=== PATIENT | female | born 1955 | race Two or more races ===

== ENCOUNTER → 2018-01-06 | Outpatient (CLI) | payer OTHER ==
--- NOTE | 2018-01-06 10:11 | RADIOLOGY REPORT (SQ) ---
EXAM DESCRIPTION: CT SINUSES FOR ENT COMPLETED DATE/TIME: 01/06/2018 9:39 am REASON FOR STUDY: J32.9 CHRONIC SINUSITIS, UNSPECIFIED ( SINUS FUSION PROTOCOL) J32.9 CHRONIC SINUS ITIS, UNSPECIFIED COMPARISON: None. TECHNIQUE: Noncontrast scanning through the paranasal sinuses using bone algorithm. Reconstructed MPR images reviewed. All images stored on PACS. Images acquired for image guided surgery. All CT scanners at this facility use dose modulation, iterative reconstruction, and/or weight based d osing when appropriate to reduce radiation dose to as low as reasonably achievable (ALARA). [facility]: Dose Right [facility]: CareDose [facility]: Dose Right [facility]: Teradose 4D [facility]: plista RADIATION DOSE: 45.9 mGy. FINDINGS: NASAL PASSAGES: Clear. No polyps or masses. OSTEOMEATAL UNITS AND NASOFRONTAL DUCTS: Patent. No agger Nasi cells. Bilateral Martine cells are pre sent. MAXILLARY SINUSES: Well-pneumatized and clear. Maxillary sinus outlets are patent. ETHMOID SINUSES: Well-pneumatized and clear. SPHENOID SINUSES: Well-pneumatized and clear. No sphenoethmoid air cells or pneumatized pterygoid rec ess. No pneumatized dorsal sella. FRONTAL SINUSES: Well-pneumatized and clear. MASTOID AIR CELLS: Clear. ORBITS: Normal and symmetrical. NASAL SEPTUM: Very mild leftward nasal septal deviation. No nasal septal spurs. TEMPOROMANDIBULAR JOINTS: Normal. TURBINATES: No pneumatized turbinates. MUCOPERIOSTEAL THICKENING: No. MUCOCELE: No. OTHER: Inferior brain parenchyma unremarkable. IMPRESSION: NO EVIDENCE OF ACUTE SINUSITIS. TECHNICAL DOCUMENTATION: JOB ID: [id number] Quality ID # [id number]: Final reports with documentation of one or more dose reduction techniques (e.g., Au tomated exposure control, adjustment of the mA and/or kV according to patient size, use of iterative reconstruction technique) 2010 [employer]- All Rights Reserved Reading location - IP/workstation name: [email or web address]
== END ==
LOC: RAD 09:22
PROVIDERS: ATTEND Otolaryngology
DX: J32.9 Chronic sinusitis, unspecified (principal)
CPT/HCPCS: 70486

== ENCOUNTER → 2018-01-08 | Outpatient (CLI) | payer OTHER | LOC: OD 09:02 | PROVIDERS: ATTEND Internal Medicine | DX: E03.9 Hypothyroidism, unspecified (principal); J30.9 Allergic rhinitis, unspecified | CPT/HCPCS: 36415; 82785; 84443; 86003 ==

== ENCOUNTER 2018-01-11 09:44 | Emergency (ER) | payer OTHER ==
[2018-01-11] MEDS ORDERED: KETOROLAC TROMETHAMINE INJ/PF 30 MG/1 ML SDV IM ONE (11:07)
--- NOTE | 2018-01-11 11:47 | RADIOLOGY REPORT (SQ) ---
EXAM DESCRIPTION: KNEE RIGHT 4 VIEWS COMPLETED DATE/TIME: 01/11/2018 11:27 am REASON FOR STUDY: fall, knee pain COMPARISON: None. NUMBER OF VIEWS: Four views. TECHNIQUE: AP, lateral, and both oblique radiographic images acquired of the right knee. LIMITATIONS: None. FINDINGS: MINERALIZATION: Normal. BONES: There are obliquely oriented lucencies extending through the patella. No other acute bony abn ormalities are appreciated. JOINT: There is a moderate-sized joint effusion present. SOFT TISSUES: No soft tissue swelling. No radio-opaque foreign body. OTHER: No other significant finding. IMPRESSION: Suggestion of possible nondisplaced fracture of the patella with moderate-sized joint ef fusion. Consider CT for further evaluation. TECHNICAL DOCUMENTATION: JOB ID: [id number] [facility]- All Rights Reserved Reading location - IP/workstation name: [email or web address]
[2018-01-11] MEDS ORDERED: OXYCODONE-ACETAMINOPHEN 5-325 MG TABLET PO ONE (12:09)
--- NOTE | 2018-01-11 12:13 | ER Document Report ---
ED Extremity Problem, Lower - General Chief Complaint: Leg Injury Stated Complaint: LEG PAIN Time Seen by Provider: 01/11/18 10:54 Mode of Arrival: Ambulatory Information source: Patient Notes: 62-year-old female who presents with chief complaint of right knee pain after she fell yesterday in her garage striking her knee onto concrete floor. Patient reports no difficulty bearing weight and limited range of motion. TRAVEL OUTSIDE OF THE [place] IN LAST 30 DAYS: No - Related Data Allergies/Adverse Reactions: aspirin [Aspirin] Allergy (Verified 10/09/15 08:49) codeine Allergy (Verified 01/11/18 09:46) Iodinated Contrast- Oral and IV Dye [IV Dye, Iodine Containing] Allergy ( Verified 10/09/15 08:54) Penicillins Allergy (Verified 01/11/18 09:46) Sulfa (Sulfonamide Antibiotics) Allergy (Verified 10/09/15 08:54) Past Medical History - General Information source: Patient - Social History Smoking Status: Never Smoker Chew tobacco use (# tins/day): No Frequency of alcohol use: None Drug Abuse: None Family History: Arthritis, CAD, DM, Hyperlipidemia, Hypertension, Malignancy Patient has suicidal ideation: No Patient has homicidal ideation: No Pulmonary Medical History: Reports: Hx Asthma Renal/ Medical History: Denies: Hx Peritoneal Dialysis GI Medical History: Reports: Hx Gastroesophageal Reflux Disease, Hx Hiatal Hernia, Hx Colonoscopy, Hx Endoscopy Musculoskeletal Medical History: Reports Hx Musculoskeletal Deformity Psychiatric Medical History: Reports: Hx Anxiety, Hx Depression Past Surgical History: Reports: Hx Section, Hx Gastric Bypass Surgery, Hx Hysterectomy - Immunizations Hx Pneumococcal Vaccination: 03/23/15 Review of Systems - Review of Systems Constitutional: No symptoms reported EENT: No symptoms reported Cardiovascular: No symptoms reported Respiratory: No symptoms reported Gastrointestinal: No symptoms reported Genitourinary: No symptoms reported Female Genitourinary: No symptoms reported Musculoskeletal: No symptoms reported Skin: No symptoms reported Hematologic/Lymphatic: No symptoms reported Neurological/Psychological: No symptoms reported Physical Exam - Vital signs Vitals: Temp Pulse Resp BP Pulse Ox 99.2 F 75 18 123/68 99 01/11/18 09:54 01/11/18 09:54 01/11/18 09:54 01/11/18 09:54 01/11/18 09:54 - Notes Notes: PHYSICAL EXAMINATION: GENERAL: Well-appearing, well-nourished and in no acute distress. HEAD: Atraumatic, normocephalic. EYES: Pupils equal round and reactive to light, extraocular movements intact, conjunctiva are normal. ENT: Nares patent, oropharynx clear without exudates. Moist mucous membranes. NECK: Normal range of motion, supple without lymphadenopathy LUNGS: Breath sounds clear to auscultation bilaterally and equal. No wheezes rales or rhonchi. HEART: Regular rate and rhythm without murmurs ABDOMEN: Soft, nontender, nondistended abdomen. No guarding, no rebound. No masses appreciated. Female : deferred Musculoskeletal: Limited range of motion to right knee, normal range of motion otherwise, no pitting or edema. No cyanosis. NEUROLOGICAL: Cranial nerves grossly intact. Normal speech. Normal sensory, motor exams PSYCH: Normal mood, normal affect. SKIN: Warm, Dry, normal turgor, no rashes or lesions noted. Course - Re-evaluation Re-evalutation: Patient with a nondisplaced fracture of the patella with moderate size joint effusion on x-ray. Consult to Dr. Neely who recommends to place patient in a knee immobilizer and have her follow-up tomorrow morning in his office. - Vital Signs Vital signs: Temp Pulse Resp BP Pulse Ox 98 F 72 16 118/62 99 01/11/18 12:25 01/11/18 12:25 01/11/18 12:25 01/11/18 12:25 01/11/18 12:25 Discharge - Discharge Clinical Impression: Patella fracture Qualifiers: Encounter type: initial encounter Fracture type: closed Fracture morphology: other fracture Laterality: right Qualified Code(s): S82.091A - Other fracture of right patella, initial encounter for closed fracture Condition: Stable Disposition: HOME, SELF-CARE Additional Instructions: Fractured Patella You have broken the kneecap (patella). Mild fractures can be treated with splinting. Serious fractures (those that split the kneecap so the thigh muscle and kneecap tendon aren't connected) usually need surgery. The entire knee will swell and bulge with fluid. There may be a lot of bruising. The knee will be splinted. Apply ice packs, and elevate the leg. You shouldn't walk on the leg at first. After a couple of days, you can walk in the splint if it doesn't hurt. Call the doctor at once if there is severe swelling, increasing pain, numbness, or other alarming symptoms. Please keep the knee immobilizer in place until you see the orthopedic doctor tomorrow Use the crutches as provided Ice and elevate the extremity Take Motrin 600 mg every 6 hours Use the prescription pain medication as needed for breakthrough pain Prescriptions: Hydrocodone/Acetaminophen [Hydrocodon-Acetaminophen 5-325] 1 each PO Q4H PRN # 12 tablet PRN Reason: For Pain Referrals: OWEN AMADO MD [ACTIVE STAFF] - Follow up as needed
[2018-01-11 12:32] VITALS: BP 118/62
== END 2018-01-11 12:25 | disposition home or self-care (01) ==
LOC: ER 09:44
DX: S82.001A Unspecified fracture of right patella, initial encounter for closed fracture (principal); W01.0XXA Fall on same level from slipping, tripping and stumbling without subsequent striking against object, initial encounter; J45.909 Unspecified asthma, uncomplicated; Z88.6 Allergy status to analgesic agent; Z88.5 Allergy status to narcotic agent; Z91.040 Latex allergy status; Z88.0 Allergy status to penicillin; Z88.2 Allergy status to sulfonamides
CPT/HCPCS: 99283; 96372; 73564; L1830; J1885

== ENCOUNTER → 2019-04-08 | Outpatient (CLI) | payer BC | LOC: LAB 18:33 | PROVIDERS: ATTEND Nurse Practitioner Acute Care | DX: R30.0 Dysuria (principal) | CPT/HCPCS: 87086 ==

== ENCOUNTER 2020-01-13 09:09 | Inpatient (IN) | payer MEDICARE, OTHER ==
--- NOTE | 2020-01-13 10:17 | ER Document Report ---
ED Medical Screen (RME) - General Chief Complaint: S/S of Possible Stroke Stated Complaint: POSSIBLE STROKE Time Seen by Provider: 01/13/20 10:14 Primary Care Provider: JACKLYN GEORGES NP [Primary Care Provider] - Follow up as needed Mode of Arrival: Wheelchair Information source: Patient, Relative Notes: 64-year-old female presents to ED for a stroke on Friday. She does have right- sided weakness. She is not able to talk. He is able to make some things now even though she is not able to talk very well. She is able to understand what we are saying. She is here with her son and she has a friend who knows more about what is going on she does have the name and number of to the friend. Patient is alert she does know who she is and where she is she does know who her son is. I have greeted and performed a rapid initial assessment of this patient. A comprehensive ED assessment and evaluation of the patient, analysis of test results and completion of medical decision making process will be conducted by an additional ED providers. TRAVEL OUTSIDE OF THE [place].S. IN LAST 30 DAYS: No - Related Data Allergies/Adverse Reactions: aspirin [Aspirin] Allergy (Verified 10/09/15 08:49) codeine Allergy (Verified 01/11/18 09:46) Iodinated Contrast Media [IV Dye, Iodine Containing] Allergy (Verified 10/09/15 08:54) Penicillins Allergy (Verified 01/11/18 09:46) Sulfa (Sulfonamide Antibiotics) Allergy (Verified 10/09/15 08:54) Past Medical History Pulmonary Medical History: Reports: Hx Asthma Renal/ Medical History: Denies: Hx Peritoneal Dialysis GI Medical History: Reports: Hx Gastroesophageal Reflux Disease, Hx Hiatal Hernia, Hx Colonoscopy, Hx Endoscopy Musculoskeltal Medical History: Reports Hx Musculoskeletal Deformity Psychiatric Medical History: Reports: Hx Anxiety, Hx Depression Past Surgical History: Reports: Hx Section, Hx Gastric Bypass Surgery, Hx Hysterectomy Physical Exam - Vital signs Vitals: Temp Pulse Resp BP Pulse Ox 99.3 F 96 18 142/71 H 100 01/13/20 09:14 01/13/20 09:14 01/13/20 09:14 01/13/20 09:14 01/13/20 09:14 Course - Vital Signs Vital signs: Temp Pulse Resp BP Pulse Ox 99.3 F 96 18 142/71 H 100 01/13/20 09:14 01/13/20 09:14 01/13/20 09:14 01/13/20 09:14 01/13/20 09:14 Doctor's Discharge - Discharge Referrals: JACKLYN GEORGES, KNITTER HAND [Primary Care Provider] - Follow up as needed
--- NOTE | 2020-01-13 10:37 | RADIOLOGY REPORT (SQ) ---
EXAM DESCRIPTION: CHEST SINGLE VIEW IMAGES COMPLETED DATE/TIME: 01/13/2020 10:29 am REASON FOR STUDY: Stroke Friday COMPARISON: None. NUMBER OF VIEWS: One view. TECHNIQUE: Single frontal radiographic view of the chest acquired. LIMITATIONS: None. FINDINGS: LUNGS AND PLEURA: No opacities, masses or pneumothorax. No pleural effusion. MEDIASTINUM AND HILAR STRUCTURES: No masses. Contour normal. HEART AND VASCULAR STRUCTURES: Heart normal in size. Normal vasculature. BONES: No acute findings. HARDWARE: None in the chest. OTHER: No other significant finding. IMPRESSION: NO SIGNIFICANT RADIOGRAPHIC FINDING IN THE CHEST. TECHNICAL DOCUMENTATION: JOB ID: [id number] 2010 [employer]- All Rights Reserved Reading location - IP/workstation name: [email or web address]
--- NOTE | 2020-01-13 10:40 | RADIOLOGY REPORT (SQ) ---
EXAM DESCRIPTION: CT HEAD WITHOUT IMAGES COMPLETED DATE/TIME: 01/13/2020 10:31 am REASON FOR STUDY: Stroke Friday COMPARISON: None. TECHNIQUE: Axial images acquired through the brain without intravenous contrast. Images reviewed wi th bone, brain and subdural windows. Additional sagittal and coronal reconstructions were generated. Images stored on PACS. All CT scanners at this facility use dose modulation, iterative reconstruction, and/or weight based d osing when appropriate to reduce radiation dose to as low as reasonably achievable (ALARA). [facility]: Dose Right [facility]: CareDose [facility]: Dose Right [facility]: Teradose 4D [facility]: [employer] RADIATION DOSE: CT Rad equipment meets quality standard of care and radiation dose reduction techniq ues were employed. CTDIvol: 53.2 mGy. DLP: 1070 mGy-cm. mGy. LIMITATIONS: None. FINDINGS: VENTRICLES: Normal size and contour. CEREBRUM: Watershed small areas of low attenuation left frontal lobe and left insula. No evidence of acute infarct, mass, hemorrhage or extra-axial fluid collection. CEREBELLUM: No masses. No hemorrhage. No alteration of density. No evidence for acute infarction. EXTRAAXIAL SPACES: No fluid collections. No masses. ORBITS AND GLOBE: No intra- or extraconal masses. Normal contour of globe without masses. CALVARIUM: No fracture. PARANASAL SINUSES: No fluid or mucosal thickening. SOFT TISSUES: No mass or hematoma. OTHER: No other significant finding. IMPRESSION: Subacute/chronic nonhemorrhagic watershed infarcts. EVIDENCE OF ACUTE STROKE: YES. LEFT MCA. COMMENT: Quality ID # [id number]: Final reports with documentation of one or more dose reduction techniques (e.g., Automated exposure control, adjustment of the mA and/or kV according to patient size, use of iterative reconstruction technique) TECHNICAL DOCUMENTATION: JOB ID: [id number] 2010 [employer]- All Rights Reserved Reading location - IP/workstation name: [email or web address]
--- NOTE | 2020-01-13 10:47 | ER Document Report ---
ED General - General Chief Complaint: S/S of Possible Stroke Stated Complaint: POSSIBLE STROKE Time Seen by Provider: 01/13/20 10:14 Mode of Arrival: Wheelchair Notes: Patient presents with right-sided facial asymmetry right-sided weakness and speech difficulty beginning on Friday afternoon. Is been constant since then. Her son is not aware of any of the details but she can tell me when it started. She was brought in by a friend who noticed that weakness today. She has no prior stroke history and we do not think she is on anticoagulation but she is not sure at her history is limited by aphasia. TRAVEL OUTSIDE OF THE [place] IN LAST 30 DAYS: No - Related Data Allergies/Adverse Reactions: aspirin [Aspirin] Allergy (Verified 10/09/15 08:49) codeine Allergy (Verified 01/11/18 09:46) Iodinated Contrast Media [IV Dye, Iodine Containing] Allergy (Verified 10/09/15 08:54) Penicillins Allergy (Verified 01/11/18 09:46) Sulfa (Sulfonamide Antibiotics) Allergy (Verified 10/09/15 08:54) Past Medical History - General Information source: Patient, Relative - Social History Smoking Status: Never Smoker Chew tobacco use (# tins/day): No Frequency of alcohol use: Heavy Drug Abuse: None Family History: Arthritis, CAD, DM, Hyperlipidemia, Hypertension, Malignancy Patient has homicidal ideation: No Pulmonary Medical History: Reports: Hx Asthma Renal/ Medical History: Denies: Hx Peritoneal Dialysis GI Medical History: Reports: Hx Gastroesophageal Reflux Disease, Hx Hiatal Hernia, Hx Colonoscopy, Hx Endoscopy Musculoskeletal Medical History: Reports Hx Musculoskeletal Deformity Psychiatric Medical History: Reports: Hx Anxiety, Hx Depression Past Surgical History: Reports: Hx Section, Hx Gastric Bypass Surgery, Hx Hysterectomy - Immunizations Hx Pneumococcal Vaccination: 03/23/15 Review of Systems - Review of Systems Notes: I REVIEW OF SYSTEMS Did: Aphasia PHYSICAL EXAMINATION General: No acute distress, well-nourished Head: Atraumatic, normocephalic ENT: Mouth normal, oropharynx moist, no exudates or tonsillar enlargement Eyes: Conjunctiva normal, pupils equal, lids normal Neck: No JVD, supple, no guarding CVS: Normal rate, regular rhythm, no murmurs Resp: No resp distress, equal and normal breath sounds bilaterally GI: Nondistended, soft, no tenderness to palpation, no rebound or guarding Ext: No deformities, no edema, normal range of motion in upper and lower ext Back: No CVA or midline TTP Skin: No rash, warm Lymphatic: No lymphadeopathy noted Neuro: Awake, alert. Face is asymmetric mild right droop with preserved eyebrow movement. 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 GCS 15. Very mild right leg weakness greater than right arm drift. Expressive aphasia, mild -: Yes ROS unobtainable due to patient's medical condition Physical Exam - Vital signs Vitals: Temp Pulse Resp BP Pulse Ox 99.3 F 96 18 142/71 H 100 01/13/20 09:14 01/13/20 09:14 01/13/20 09:14 01/13/20 09:14 01/13/20 09:14 Course - Re-evaluation Re-evalutation: 01/13/20 10:46 Subacute stroke appears to be completed out of the window for both IV TPA and intervention of any kind CT shows left MCA infarct which matches her symptoms We will attempt to admit to [place], aspirin atorvastatin will be given and will discuss with hospitalist. 01/13/20 14:58 Discussed with hospitalist. Appropriate for admission here, discussed with Adams. Labs and urine are negative We will admit upstairs here at [place] for further work-up and treatment - Vital Signs Vital signs: Temp Pulse Resp BP Pulse Ox 99.3 F 96 18 117/50 L 100 01/13/20 09:14 01/13/20 09:14 01/13/20 13:30 01/13/20 13:01 01/13/20 13:30 - Laboratory Result Diagrams: 01/13/20 10:33 01/13/20 10:33 Laboratory results interpreted by me: 01/13/20 01/13/20 01/13/20 10:33 10:33 11:25 RDW 16.3 H Chloride 112 H Carbon Dioxide 21 L Creatine Kinase 182 H Urine Ketones TRACE H - Diagnostic Test Radiology reviewed: Image reviewed, Reports reviewed Discharge - Discharge Clinical Impression: Acute ischemic left MCA stroke Condition: Fair Disposition: ADMITTED INPATIENT Admitting Provider: Adams (Hospitalist)
[2020-01-13 10:49] LABS: INTERNATIONAL RATION (INR) 1.01
[2020-01-13 10:51] LABS: ABSOLUTE LYMPHOCYTES (AUTO) 1.8 10^3/uL (0.5-4.7); ABSOLUTE MONOCYTES (AUTO) 0.4 10^3/uL (0.1-1.4); ABSOLUTE NEUT (AUTO) 5.8 10^3/uL (1.7-8.2); BASOPHILS % (AUTO) 0.2 % (0-2); EOSINOPHILS % (AUTO) 0.4 % (0-6); HEMATOCRIT 37.2 % (36.0-47.0); HEMOGLOBIN 12.2 g/dL (12.0-15.5); LYMPHOCYTES % (AUTO) 21.9 % (13-45); MEAN CORPUSCULAR HEMOGLOBIN 29.5 pg (27.0-33.4); MEAN CORPUSCULAR HGB CONC 32.9 g/dL (32.0-36.0); MEAN CORPUSCULAR VOLUME 90 fl (80-97); MONOCYTES % (AUTO) 5.1 % (3-13); PLATELET COUNT 305 10^3/uL (150-450); RED BLOOD COUNT 4.14 10^6/uL (3.72-5.28); RED CELL DISTRIBUTION WIDTH 16.3 % (11.5-14.0); SEGMENTED NEUTROPHILS % (AUTO) 72.4 % (42-78); TOTAL CELLS COUNTED % (AUTO) 100 %
[2020-01-13 10:52] LABS: PROTHROMBIN TIME 13.3 SEC (11.4-15.4)
[2020-01-13 11:02] LABS: ALBUMIN 4.5 g/dL (3.5-5.0); ALKALINE PHOSPHATASE 65 U/L (38-126); ANION GAP 7 (5-19); ASPARTATE AMINO TRANSFERASE 29 U/L (14-36); BILIRUBIN,TOTAL 0.4 mg/dL (0.2-1.3); BLOOD UREA NITROGEN 15 mg/dL (7-20); CALCIUM 9.5 mg/dL (8.4-10.2); CARBON DIOXIDE 21 mmol/L (22-30); CHLORIDE 112 mmol/L (98-107); CREATINE KINASE 182 U/L (30-135); GLUCOSE 103 mg/dL (75-110); POTASSIUM 3.8 mmol/L (3.6-5.0); TOTAL PROTEIN 7.6 g/dL (6.3-8.2)
[2020-01-13 11:14] LABS: CREATINE KINASE MB 1.27 ng/mL (<4.55)
[2020-01-13 11:18] LABS: TROPONIN I < 0.012 ng/mL
[2020-01-13 11:52] LABS: AMORPHOUS SEDIMENT,URINE TRACE /HPF; APPEARANCE,URINE SLIGHTLY-CLOUDY; BILIRUBIN,URINE NEGATIVE (NEGATIVE); COLOR,URINE YELLOW; GLUCOSE, URINE NEGATIVE (NEGATIVE); KETONES,URINE TRACE mg/dL (NEGATIVE); LEUKOCYTE ESTERASE,URINE NEGATIVE (NEGATIVE); NITRITE,URINE NEGATIVE (NEGATIVE); PROTEIN,URINE NEGATIVE (NEGATIVE); URINE SPECIFIC GRAVITY 1.016; UROBILINOGEN,URINE NEGATIVE mg/dL (<2.0)
[2020-01-13] MEDS ORDERED: ACETAMINOPHEN 325 MG TABLET PO PRN (12:40)
--- NOTE | 2020-01-13 12:56 | PDOC H&P ---
History of Present Illness Admission Date/PCP: VICTORIANO MCKEON DO History of Present Illness: MARYBETH MCGUIRE is a 64 year old female with no significant past medical history who presents 2 days after the onset of dysarthria and right-sided weakness. She said the right-sided weakness has improved substantially but she still has trouble with her speech. She has not noticed whether or not she has had any trouble swallowing. The main issue she seems to have now is trouble getting her words out. She is frustrated by the fact that she knows what she wants to say but she has trouble verbalizing it. She was noted to have some subtle left facial droop. She said when it first happened, she was having to drag her right foot but now she is able to walk with a smoother gait. She is never had anything like this happen her before. She has no family history of stroke. She is not diabetic. She has no history of hypertension. No history of chronic kidney disease. No history of hyperlipidemia. She does not smoke. No history of any cardiac disease or peripheral vascular disease. No history of an abnormal heart rhythm. She was found to have evidence of a stroke of what looks to be the left MCA territory on head CT that appeared subacute. Past Medical History Pulmonary Medical History: Reports: Asthma GI Medical History: Reports: Gastroesophageal Reflux Disease, Hiatal Hernia Psychiatric Medical History: Reports: Depression Past Surgical History Past Surgical History: Reports: Section, Gastric Bypass Surgery, Hysterectomy Social History Smoking Status: Never Smoker Electronic Cigarette use?: No Frequency of Alcohol Use: None Hx Recreational Drug Use: No Drugs: None Hx Prescription Drug Abuse: No Family History Family History: Arthritis, CAD, DM, Hyperlipidemia, Hypertension, Malignancy Parental Family History Reviewed: Yes Children Family History Reviewed: Yes Sibling(s) Family History Reviewed.: Yes Medication/Allergy Home Medications: Cetirizine HCl [Zyrtec] 10 mg PO DAILY 10/09/15 Venlafaxine HCl ER [Effexor Xr 75 mg Cap.sr] 75 mg PO DAILY 10/09/15 Hydrocodone/Acetaminophen [Hydrocodon-Acetaminophen 5-325] 1 each PO Q4H PRN #12 tablet 01/11/18 Allergies/Adverse Reactions: aspirin [Aspirin] Allergy (Verified 10/09/15 08:49) codeine Allergy (Verified 01/11/18 09:46) Iodinated Contrast Media [IV Dye, Iodine Containing] Allergy (Verified 10/09/15 08:54) Penicillins Allergy (Verified 01/11/18 09:46) Sulfa (Sulfonamide Antibiotics) Allergy (Verified 10/09/15 08:54) Review of Systems All systems: reviewed and no additional remarkable complaints except as stated - All systems were reviewed and were negative except as noted in the HPI Physical Exam Vital Signs: Temp Pulse Resp BP Pulse Ox 99.3 F 96 12 134/61 H 100 01/13/20 09:14 01/13/20 09:14 01/13/20 11:15 01/13/20 11:01 01/13/20 11:15 Intake & Output 01/12/20 01/13/20 01/14/20 06:59 06:59 06:59 Weight 77.2 kg General appearance: PRESENT: no acute distress, cooperative, disheveled, obese Head exam: PRESENT: atraumatic, normocephalic Eye exam: PRESENT: EOMI, PERRLA. ABSENT: conjunctival injection, nystagmus, scleral icterus Ear exam: PRESENT: normal external ear exam Mouth exam: PRESENT: moist, neck supple Throat exam: ABSENT: post pharyngeal erythema Neck exam: PRESENT: full ROM. ABSENT: carotid bruit, JVD, lymphadenopathy, meningismus, tenderness, thyromegaly Respiratory exam: PRESENT: clear to auscultation chase, symmetrical, unlabored. ABSENT: accessory muscle use, chest wall tenderness, crackles, prolonged expiratory phas, rhonchi, tachypnea, wheezes Cardiovascular exam: PRESENT: RRR, +S1, +S2 Pulses: PRESENT: normal carotid pulses Vascular exam: PRESENT: normal capillary refill GI/Abdominal exam: PRESENT: normal bowel sounds, soft. ABSENT: distended, guarding, rebound, tenderness Extremities exam: ABSENT: clubbing, pedal edema Musculoskeletal exam: PRESENT: normal inspection. ABSENT: deformity Neurological exam: PRESENT: alert, awake, oriented to person, oriented to place, oriented to situation, CN II-XII grossly intact - With the exception of some subtle left-sided facial droop, aphasic - She seems to have an expressive a aphasia, cannot always get the words out that she wants and gets visibly frustrated. ABSENT: motor sensory deficit - She was not able to hold her right leg off the bed as long as she did the left Psychiatric exam: PRESENT: appropriate affect, normal mood Skin exam: PRESENT: dry, warm Results Laboratory Results: 01/13/20 10:33 01/13/20 10:33 01/13/20 01/13/20 01/13/20 10:33 10:33 11:25 WBC 8.0 RBC 4.14 Hgb 12.2 Hct 37.2 MCV 90 MCH 29.5 MCHC 32.9 RDW 16.3 H Plt Count 305 Seg Neutrophils % 72.4 Sodium 140.1 Potassium 3.8 Chloride 112 H Carbon Dioxide 21 L Anion Gap 7 BUN 15 Creatinine 0.87 Est GFR ( Amer) > 60 Glucose 103 Calcium 9.5 Total Bilirubin 0.4 AST 29 Alkaline Phosphatase 65 Total Protein 7.6 Albumin 4.5 Urine Color YELLOW Urine Appearance SLIGHTLY-CLOUDY Urine pH 7.0 Ur Specific [employer] 1.016 Urine Protein NEGATIVE Urine Glucose (UA) NEGATIVE Urine Ketones TRACE H Urine Blood NEGATIVE Urine Nitrite NEGATIVE Ur Leukocyte Esterase NEGATIVE Urine WBC (Auto) 1 Urine RBC (Auto) 2 01/13/20 01/13/20 10:33 10:33 Creatine Kinase 182 H CK-MB (CK-2) 1.27 Troponin I < 0.012 Impressions: Chest X-Ray 01/13/20 10:17 IMPRESSION: NO SIGNIFICANT RADIOGRAPHIC FINDING IN THE CHEST. Head CT 01/13/20 10:17 IMPRESSION: Subacute/chronic nonhemorrhagic watershed infarcts. EVIDENCE OF ACUTE STROKE: YES. LEFT MCA. Assessment and Plan - Diagnosis (1) Acute ischemic left MCA stroke Is this a current diagnosis for this admission?: Yes Plan: MRI of the head and carotid Doppler. She has an aspirin allergy so we will put her on Plavix. Check a lipid panel and start atorvastatin. Permissive hyperte nsion, but her blood pressures have been pretty good. We will have her evaluated by PT, OT, and speech therapy. - Time Time Spent with patient: 35 or more minutes Anticipated discharge: Home with Homehealth Within: within 72 hours - Inpatient Certification Based on my medical assessment, after consideration of the patient's comorbidities, presenting symptoms, or acuity I expect that the services needed warrant INPATIENT care.: Yes I certify that my determination is in accordance with my understanding of Medicare's requirements for reasonable and necessary INPATIENT services [42 CFR 412.3e].: Yes Medical Necessity: Need Close Monitoring Due to Risk of Patient Decompensation, Need For Continuous Telemetry Monitoring, Need for Neurological Checks, Risk of Complication if Not Cared For in Hospital
--- NOTE | 2020-01-13 14:47 | RADIOLOGY REPORT (SQ) ---
EXAM DESCRIPTION: MRI HEAD WITHOUT IMAGES COMPLETED DATE/TIME: 01/13/2020 2:27 pm REASON FOR STUDY: acute cva COMPARISON: Head CT of the same date. TECHNIQUE: Multiplanar imaging includes non-contrasted T1, T2, FLAIR, and diffusion with ADC map seq uences. Images stored on PACS. LIMITATIONS: None. FINDINGS: ANATOMY: No anomalies. Normal vascular flow voids. Pituitary fossa normal. CSF SPACES: Normal in size and contour. No hemorrhage. CEREBRUM: There are 4 areas of abnormal signal in the left MCA distribution, the largest in the left frontal cortex measuring about 3 cm. Bright on diffusion and dark on ADC map. No hemorrhage or mass effect. POSTERIOR FOSSA: No signal alteration. No hemorrhage. No edema, masses or mass effect. Internal ml tory canals, cerebello-pontine angles, mastoids normal. DIFFUSION IMAGING: See above. ORBITS: No masses. Globes normal. PARANASAL SINUSES: No fluid levels. Mucosa normal. OTHER: No other significant finding. IMPRESSION: Acute, nonhemorrhagic watershed infarcts left frontal and temporal lobes. EVIDENCE OF ACUTE STROKE: YES. LEFT MCA TECHNICAL DOCUMENTATION: JOB ID: [id number] [employer]- All Rights Reserved Reading location - IP/workstation name: [email or web address]
[2020-01-13] MEDS: HEPARIN SOD (PORCINE) 5,000 UNIT/ML 1 ML VIAL SUBCUT SCH ×2 (18:23→21:47)
--- NOTE | 2020-01-13 19:23 | RADIOLOGY REPORT (SQ) ---
EXAM DESCRIPTION: CAROTID DOPPLER IMAGES COMPLETED DATE/TIME: 01/13/2020 6:58 pm REASON FOR STUDY: acute cva COMPARISON: None. TECHNIQUE: Grayscale ultrasound, Doppler velocity and spectra, and color Doppler images acquired of the extra-cranial carotid and vertebral arteries. Images stored on PACS. LIMITATIONS: None. FINDINGS: RIGHT CAROTID CCA Velocities: Within normal limits. ICA Velocities Peak systolic 100 cm/s. End diastolic 43 cm/s. Proximal ICA/CCA peak systolic ratio 1.3. Spectra normal. No significant plaque. LEFT CAROTID CCA Velocities: Within normal limits. ICA Velocities Peak systolic 114 cm/s. End diastolic 42 cm/s. Proximal ICA/CCA peak systolic ratio 1.3. Spectra normal. No significant plaque. VERTEBRAL ARTERIES: Antegrade flow. Normal waveforms. SUBCLAVIAN ARTERIES: No finding. OTHER: No other significant finding. IMPRESSION: NO HEMODYNAMICALLY SIGNIFICANT STENOSIS. COMMENT: Quality ID #[id number]: Velocity criteria are extrapolated from the diameter data as defined by t he Society of Radiologists in Ultrasound Consensus Conference. Radiology 2003: 229; 340-346. TECHNICAL DOCUMENTATION: JOB ID: [id number] 2010 [employer]- All Rights Reserved Reading location - IP/workstation name: [email or web address]
[2020-01-13] MEDS ORDERED: ATORVASTATIN CALCIUM 80 MG TABLET PO SCH (22:00)
[2020-01-13] MEDS ORDERED: FAMOTIDINE 20 MG TABLET PO ONE (23:45)
[2020-01-13] MEDS ORDERED: FAMOTIDINE 20 MG TABLET PO SCH (23:45)
[2020-01-13] MEDS ORDERED: BUSPIRONE HCL 10 MG TABLET PO ONE (23:45)
[2020-01-13] MEDS ORDERED: HYDROXYZINE PAMOATE 25 MG CAPSULE PO SCH (23:45)
[2020-01-13] MEDS ORDERED: TOPIRAMATE 100 MG TABLET PO ONE (23:45)
[2020-01-13] MEDS ORDERED: HYDROXYZINE PAMOATE 25 MG CAPSULE PO ONE (23:45)
[2020-01-14] MEDS ORDERED: HYDROXYZINE PAMOATE 25 MG CAPSULE PO ONE (00:15)
[2020-01-14] MEDS ORDERED: TOPIRAMATE 100 MG TABLET ONE (00:39)
[2020-01-14] MEDS: TOPIRAMATE 100 MG TABLET PO SCH ×2 (00:44→10:22)
--- NOTE | 2020-01-14 01:08 | EKG REPORT ---
SEVERITY:- ABNORMAL ECG - SINUS RHYTHM PROBABLE LVH WITH SECONDARY REPOL ABNRM : Confirmed by: Adrián Rahman 14-Jan-2020 01:07:29
[2020-01-14] MEDS: HEPARIN SOD (PORCINE) 5,000 UNIT/ML 1 ML VIAL SUBCUT SCH ×2 (06:20→14:18)
[2020-01-14 08:15] LABS: MEAN CORPUSCULAR HEMOGLOBIN 29.4 pg (27.0-33.4); MEAN CORPUSCULAR HGB CONC 33.3 g/dL (32.0-36.0); MEAN CORPUSCULAR VOLUME 88 fl (80-97); PLATELET COUNT 263 10^3/uL (150-450); RED BLOOD COUNT 4.08 10^6/uL (3.72-5.28); WHITE BLOOD COUNT 4.3 10^3/uL (4.0-10.5)
[2020-01-14 08:36] LABS: BLOOD UREA NITROGEN 12 mg/dL (7-20); CALCIUM 9.2 mg/dL (8.4-10.2); CHOLESTEROL 210.92 mg/dL (0-200); GLUCOSE 97 mg/dL (75-110); POTASSIUM 3.7 mmol/L (3.6-5.0); TRIGLYCERIDES 128 mg/dL (<150)
[2020-01-14 08:41] LABS: ANION GAP 7 (5-19); CARBON DIOXIDE 22 mmol/L (22-30); CHLORIDE 112 mmol/L (98-107)
[2020-01-14 08:51] LABS: DIRECT LDL 104 mg/dL (<100)
[2020-01-14] MEDS ORDERED: VENLAFAXINE HCL 75 MG CAP.SR.24H PO SCH (10:00)
[2020-01-14] MEDS ORDERED: CLOPIDOGREL BISULFATE 75 MG TABLET PO SCH (10:00)
[2020-01-14] MEDS: BUSPIRONE HCL 10 MG TABLET PO SCH ×2 (10:22)
[2020-01-14 12:29] VITALS: BP 109/56
--- NOTE | 2020-01-14 17:54 | PDOC DISCHARGE SUMMARY ---
Impression - Admit/DC Date/PCP Admission Date/Primary Care Provider: 01/13/20 13:23 VICTORIANO MIKE, DO Discharge Date: 01/14/20 - Discharge Diagnosis (1) Acute ischemic left MCA stroke Is this a current diagnosis for this admission?: Yes - Additional Information Resuscitation Status: Full Code Discharge Diet: Cardiac Discharge Activity: Slowly Increase Activity Referrals: JACKLYN GEORGES, INSO[facility] L[facility] TURNER [NURSE PRACTITIONER] - 01/21/20 10:00 am Prescriptions: Aspirin [[facility] [facility] Aspirin EC] 81 mg PO DAILY #30 tablet. Home Medications: Venlafaxine HCl ER [Effexor Xr 75 mg Cap.sr] 225 mg PO DAILY 10/09/15 Buspirone HCl [Buspar 10 mg Tablet] 30 mg PO BID 01/13/20 Famotidine [Pepcid] 20 mg PO QHS 01/13/20 Hydroxyzine Pamoate [Vistaril 25 mg Capsule] 25 mg PO QHS 01/13/20 Topiramate [Topamax] 100 mg PO BID 01/13/20 Aspirin [[facility] Aspirin EC] 81 mg PO DAILY #30 tablet. 01/14/20 History of Present Illiness History of Present Illness: MARYBETH MCGUIRE is a 64 year old female with no significant past medical history who presents 2 days after the onset of dysarthria and right-sided weakness. She said the right-sided weakness has improved substantially but she still has trouble with her speech. She has not noticed whether or not she has had any trouble swallowing. The main issue she seems to have now is trouble getting her words out. She is frustrated by the fact that she knows what she wants to say but she has trouble verbalizing it. She was noted to have some subtle left facial droop. She said when it first happened, she was having to drag her right foot but now she is able to walk with a smoother gait. She is never had anything like this happen her before. She has no family history of stroke. She is not diabetic. She has no history of hypertension. No history of chronic kidney disease. No history of hyperlipidemia. She does not smoke. No history of any cardiac disease or peripheral vascular disease. No history of an abnormal heart rhythm. She was found to have evidence of a stroke of what looks to be the left MCA territory on head CT that appeared subacute. Hospital Course Hospital Course: She did have an MRI that confirmed left MCA stroke. Fortunately, she has had an improvement in her expressive aphasia, but still has a little bit of residual deficit. She has not had any trouble chewing or swallowing. She was visibly frustrated when she was having trouble trying to get out what she wanted to say. She was able to ambulate independently and perform all of her ADLs. She was encouraged to take a daily aspirin. Her LDL was barely elevated above her goal, so she was encouraged to cut saturated fat out of her diet just a little bit more. Her blood pressure was good. She is not diabetic and does not smoke. She has follow-up arranged with her primary care provider in 1 to 2 weeks. We have set up home health speech therapy, and we also set her up with some physical therapy because even though she was able to ambulate independently in the room, when she walked longer distances she used a single-point cane. Her labs and examination were reassuring and she was discharged in stable condition. Physical Exam Vital Signs: Temp Pulse Resp BP Pulse Ox 97.7 F 79 16 109/56 L 100 01/14/20 13:18 01/14/20 14:00 01/14/20 13:18 01/14/20 12:00 01/14/20 13:18 Intake & Output 01/13/20 01/14/20 01/15/20 06:59 06:59 06:59 Intake Total 0 Output Total 1405 Balance 0 -1405 Weight 77.6 kg General appearance: PRESENT: no acute distress, cooperative, disheveled, obese Respiratory exam: PRESENT: clear to auscultation chase, symmetrical, unlabored. ABSENT: accessory muscle use, chest wall tenderness, crackles, prolonged expiratory phas, rhonchi, tachypnea, wheezes Cardiovascular exam: PRESENT: RRR, +S1, +S2 Pulses: PRESENT: normal carotid pulses Vascular exam: PRESENT: normal capillary refill GI/Abdominal exam: PRESENT: normal bowel sounds, soft. ABSENT: distended, guarding, rebound, tenderness Extremities exam: ABSENT: clubbing, pedal edema Musculoskeletal exam: PRESENT: normal inspection. ABSENT: deformity Neurological exam: PRESENT: alert, awake, oriented to person, oriented to place, oriented to situation, CN II-XII grossly intact - With the exception of some subtle left-sided facial droop, aphasic - She seems to have an expressive aphasia, cannot always get the words out that she wants and gets visibly frustrated. Very subtle decreased strength in the right lower extremity compared to the left but has improved since the initial exam Psychiatric exam: PRESENT: appropriate affect, normal mood Skin exam: PRESENT: dry, warm Results Laboratory Results: WBC 4.3 10^3/uL (4.0-10.5) 01/14/20 07:50 RBC 4.08 10^6/uL (3.72-5.28) 01/14/20 07:50 Hgb 12.0 g/dL (12.0-15.5) 01/14/20 07:50 Hct 36.0 % (36.0-47.0) 01/14/20 07:50 MCV 88 fl (80-97) 01/14/20 07:50 MCH 29.4 pg (27.0-33.4) 01/14/20 07:50 MCHC 33.3 g/dL (32.0-36.0) 01/14/20 07:50 RDW 16.0 % (11.5-14.0) H 01/14/20 07:50 Plt Count 263 10^3/uL (150-450) 01/14/20 07:50 Lymph % (Auto) 21.9 % (13-45) 01/13/20 10:33 [place] % (Auto) 5.1 % (3-13) 01/13/20 10:33 Eos % (Auto) 0.4 % (0-6) 01/13/20 10:33 Baso % (Auto) 0.2 % (0-2) 01/13/20 10:33 Absolute Neuts (auto) 5.8 10^3/uL (1.7-8.2) 01/13/20 10:33 Absolute Lymphs (auto) 1.8 10^3/uL (0.5-4.7) 01/13/20 10:33 Absolute Monos (auto) 0.4 10^3/uL (0.1-1.4) 01/13/20 10:33 Absolute Eos (auto) 0.0 10^3/uL (0.0-0.6) 01/13/20 10:33 Absolute Basos (auto) 0.0 10^3/uL (0.0-0.2) 01/13/20 10:33 Seg Neutrophils % 72.4 % (42-78) 01/13/20 10:33 PT 13.3 SEC (11.4-15.4) 01/13/20 10:33 INR 1.01 01/13/20 10:33 APTT 26.0 SEC (23.5-35.8) 01/13/20 10:33 Sodium 140.5 mmol/L (137-145) 01/14/20 07:50 Potassium 3.7 mmol/L (3.6-5.0) 01/14/20 07:50 Chloride 112 mmol/L (98-107) H 01/14/20 07:50 Carbon Dioxide 22 mmol/L (22-30) 01/14/20 07:50 Anion Gap 7 (5-19) 01/14/20 07:50 BUN 12 mg/dL (7-20) 01/14/20 07:50 Creatinine 0.78 mg/dL (0.52-1.25) 01/14/20 07:50 Est GFR ( Amer) > 60 (>60) 01/14/20 07:50 Est GFR (MDRD) Non-Af > 60 (>60) 01/14/20 07:50 Glucose 97 mg/dL (75-110) 01/14/20 07:50 POC Glucose 100 mg/dL (70-110) 01/13/20 10:34 Calcium 9.2 mg/dL (8.4-10.2) 01/14/20 07:50 Total Bilirubin 0.4 mg/dL (0.2-1.3) 01/13/20 10:33 Direct Bilirubin 0.0 mg/dL (0.0-0.4) 01/13/20 10:33 Neonat Total Bilirubin Not Reportable 01/13/20 10:33 Neonat Direct Bilirubin Not Reportable 01/13/20 10:33 Neonat Indirect Bili Not Reportable 01/13/20 10:33 AST 29 U/L (14-36) 01/13/20 10:33 ALT 16 U/L (<35) 01/13/20 10:33 Alkaline Phosphatase 65 U/L (38-126) 01/13/20 10:33 Creatine Kinase 182 U/L (30-135) H 01/13/20 10:33 CK-MB (CK-2) 1.27 ng/mL (<4.55) 01/13/20 10:33 Troponin I < 0.012 ng/mL 01/13/20 10:33 Total Protein 7.6 g/dL (6.3-8.2) 01/13/20 10:33 Albumin 4.5 g/dL (3.5-5.0) 01/13/20 10:33 Triglycerides 128 mg/dL (<150) 01/14/20 07:50 Cholesterol 210.92 mg/dL (0-200) H 01/14/20 07:50 LDL Cholesterol Direct 104 mg/dL (<100) H 01/14/20 07:50 VLDL Cholesterol 26.0 mg/dL (10-31) 01/14/20 07:50 HDL Cholesterol 78 mg/dL (>40) 01/14/20 07:50 Urine Color YELLOW 01/13/20 11:25 Urine Appearance SLIGHTLY-CLOUDY 01/13/20 11:25 Urine pH 7.0 (5.0-9.0) 01/13/20 11:25 Ur Specific [place] 1.016 01/13/20 11:25 Urine Protein NEGATIVE mg/dL (NEGATIVE) 01/13/20 11:25 Urine Glucose (UA) NEGATIVE mg/dL (NEGATIVE) 01/13/20 11:25 Urine Ketones TRACE mg/dL (NEGATIVE) H 01/13/20 11:25 Urine Blood NEGATIVE (NEGATIVE) 01/13/20 11:25 Urine Nitrite NEGATIVE (NEGATIVE) 01/13/20 11:25 Urine Bilirubin NEGATIVE (NEGATIVE) 01/13/20 11:25 Urine Urobilinogen NEGATIVE mg/dL (<2.0) 01/13/20 11:25 Ur Leukocyte Esterase NEGATIVE (NEGATIVE) 01/13/20 11:25 Urine WBC (Auto) 1 /HPF 01/13/20 11:25 Urine RBC (Auto) 2 /HPF 01/13/20 11:25 Amorphous Sediment Auto TRACE /HPF 01/13/20 11:25 Urine Mucus (Auto) RARE /LPF 01/13/20 11:25 Urine Ascorbic Acid NEGATIVE (NEGATIVE) 01/13/20 11:25 01/13/20 10:33 CK-MB (CK-2) 1.27 Troponin I < 0.012 Impressions: Carotid Doppler Study 01/13/20 00:00 IMPRESSION: NO HEMODYNAMICALLY SIGNIFICANT STENOSIS. Head MRI 01/13/20 00:00 IMPRESSION: Acute, nonhemorrhagic watershed infarcts left frontal and temporal lobes. EVIDENCE OF ACUTE STROKE: YES. LEFT MCA Chest X-Ray 01/13/20 10:17 IMPRESSION: NO SIGNIFICANT RADIOGRAPHIC FINDING IN THE CHEST. Head CT 01/13/20 10:17 IMPRESSION: Subacute/chronic nonhemorrhagic watershed infarcts. EVIDENCE OF ACUTE STROKE: YES. LEFT MCA. Plan Time Spent: Greater than 30 Minutes Stroke Is this a Stroke Patient?: Yes Stroke Pt being discharged on Anti-thrombolytic therapy?: Yes Stroke Pt being discharged on Anti-coagulation therapy?: No Reason(s) for not prescribing Anti-coagulation therapy:: Not indicated Stroke Pt being discharged on Statins?: No Reason(s) for not prescribing Statins therapy:: Not indicated Acute Heart Failure - Is this a Heart Failure Patient?: No
[2020-01-14] MEDS ORDERED: HYDROXYZINE PAMOATE 25 MG CAPSULE PO SCH (22:00)
== END 2020-01-14 15:35 | disposition home health service (06) | DRG 66 ==
LOC: ER 09:09 → EH 13:23 → 5 15:31
PROVIDERS: ADMIT Family Medicine; ATTEND Family Medicine
DX: I63.512 Cerebral infarction due to unspecified occlusion or stenosis of left middle cerebral artery (principal); R47.9 Unspecified speech disturbances; R29.810 Facial weakness; R47.01 Aphasia; M62.81 Muscle weakness (generalized); J45.909 Unspecified asthma, uncomplicated; K21.9 Gastro-esophageal reflux disease without esophagitis; K44.9 Diaphragmatic hernia without obstruction or gangrene; F41.8 Other specified anxiety disorders; Z98.84 Bariatric surgery status; Z88.0 Allergy status to penicillin; Z88.2 Allergy status to sulfonamides; Z88.6 Allergy status to analgesic agent; Z91.041 Radiographic dye allergy status
CPT/HCPCS: 36415; 51701; 70450; 70551; 71045; 80048; 80053; 80061; 81001; 82550; 82553; 82962; 84484; 85025; 85027; 85610; 85730; 93005; 93010; 93880; 99285; J1644; J3490

== ENCOUNTER → 2020-01-28 | Outpatient (CLI) | payer MEDICARE ==
[2020-01-28 17:45] LABS: FREE T4 (FREE THYROXINE) 0.98 ng/dL (0.78-2.19)
[2020-01-28 17:59] LABS: THYROID STIMULATING HORMONE 2.84 uIU/mL (0.47-4.68)
== END ==
LOC: OD 16:43
PROVIDERS: ATTEND Family Medicine
DX: I63.512 Cerebral infarction due to unspecified occlusion or stenosis of left middle cerebral artery (principal); E34.9 Endocrine disorder, unspecified; R63.5 Abnormal weight gain
CPT/HCPCS: 36415; 83970; 84439; 84443